=== PATIENT | female | born 1955 | race Hispanic/Latino ===

== ENCOUNTER 2017-07-05 08:12 | Day surgery (SDC) | payer BC ==
[2017-06-26 07:55] VITALS: BMI 21.9
[2017-07-05] MEDS ORDERED: Propofol 10 mg/ml Inj (20 ML) ONE (09:41)
[2017-07-05] MEDS ORDERED: Sodium Chloride 0.9% 1,000 ML IV SCH (10:30)
[2017-07-05 10:51] VITALS: PULSE 61
[2017-07-05 11:16] VITALS: BP 135/64; RESP 17; TEMP 97.9; O2SAT 100
== END 2017-07-05 11:43 | disposition home or self-care (01) ==
LOC: ENDO 08:12
PROVIDERS: ATTEND Specialist
DX: D12.2 Benign neoplasm of ascending colon (principal); K64.8 Other hemorrhoids; K57.30 Diverticulosis of large intestine without perforation or abscess without bleeding; K21.9 Gastro-esophageal reflux disease without esophagitis; E11.9 Type 2 diabetes mellitus without complications; M81.0 Age-related osteoporosis without current pathological fracture
CPT/HCPCS: 45385; 88305; J2704; J7040